=== PATIENT | male | born 1980 | race Caucasian/White ===

== ENCOUNTER 2024-11-28 11:30 | Emergency (ER) | payer OTHER ==
[2024-11-28 12:00] VITALS: TEMP 97.8
[2024-11-28 12:20] LABS: Absolute Neutrophil Ct (ANC) 2.59 x10^3/uL (1.78-5.38); BASOPHIL % 1.3 % (0.2-1.2); Basophil (Absolute #) 0.05 x10^3/uL (0.01-0.08); Eosinophil (Absolute #) 0 x10^3/uL (0.04-0.54); Hematocrit 27.5 % (40.1-51.0); Hemoglobin 9.6 g/dL (13.7-17.5); IMMATURE GRAN # 0.02 x10^3u/L (0.001-0.031); IMMATURE GRAN % 0.5 % (0.001-0.429); Lymphocyte (Absolute #) 0.61 x10^3/uL (1.32-3.57); Lymphocytes % 16.1 % (21.8-53.1); Mean Cell Volume 102.6 fL (79.0-92.2); Mean Corpuscular Hemoglobin 35.8 pg (25.7-32.2); Mean Corpuscular Hgb Concent. 34.9 g/dL (32.3-36.5); Mean Platelet Volume 9.4 fL (9.4-12.4); Monocyte (Absolute #) 0.52 x10^3/uL (0.30-0.82); Monocytes % 13.7 % (5.3-12.2); Neutrophil % 68.4 % (34.0-67.9); Platelet Count 61 x10^3/uL (163-337); Red Blood Count 2.68 x10^6/uL (4.63-6.08); Red Cell Distribution Width 13.4 % (11.6-14.4); White Blood Count 3.8 x10^3/uL (4.23-9.07)
[2024-11-28 12:33] LABS: ALBUMIN 3.5 g/dL (3.5-5.0); ANION GAP 16.9 MEQ/L (5-15); Calcium 7.9 mg/dL (8.4-10.2); Creatinine 1 0.64 mg/dL (0.66-1.25); Potassium 3.4 mmol/L (3.5-5.1); Total Protein 7.4 g/dL (6.3-8.2)
[2024-11-28 14:34] LABS: Slide Review 1 YES
--- NOTE | 2024-11-28 15:22 | XRAY ---
Indication: Ascites. Mode contiguous axial images obtained through the abdomen and pelvis using 80 cc Isovue 370 contrast as ordered. Comparison: None Lung bases clear. Heart not enlarged. Small hiatal hernia with small distal paraesophageal varices. Noncontrasted stomach and bowel loops appear nonobstructed. Cirrhotic appearing liver with moderate diffuse abdominal/pelvic ascites. No walled off fluid collection or free air. Main portal vein is normal in course and caliber. Mildly distended gallbladder with tiny gallstones/gravel in the dependent portion. There is borderline gallbladder wall thickening and enhancement, possible early/mild cholecystitis. Remaining liver, gallbladder, pancreas, spleen, adrenal glands, kidneys, ureters, bladder, and aorta are unremarkable. No pathologic retroperitoneal lymphadenopathy. Osseous structures intact with mild lumbosacral junction degenerative disc osteophyte complex, degenerative vacuum disc phenomena, and disc space narrowing. Impression: 1. Cirrhotic liver with abdominal/pelvic ascites as detailed. Incidental distal paraesophageal varices which may be related. 2. Mild distended gallbladder with tiny gallstones/gravel. Also borderline wall thickening/enhancement. Rule out early or mild cholecystitis. 3. Incidental small hiatal hernia and lumbosacral junction degenerative disc disease.
--- NOTE | 2024-11-28 15:51 | ERPHSYRPT ---
- History of Present Illness Source: patient, family Exam Limitations: no limitations Patient Subjective Stated Complaint: C/O swelling in abdomen in the past 6 weeks. States he has gained 40 pounds since this began. Denies pain. Triage Nursing Assessment: Patient ambulated back to ER without difficulties. He is alert and oriented; anxious. Patient's abdomen is distended. Abdominal girth measured at naval while patient standing, measures 53 inches. Skin is jaundice. Physician History: The patient's had about a 50 pound weight gain over the last 3 weeks. It is all in his abdomen it is ascites in appearance. He has a history of heavy drinking but he stopped that about 10 years ago he still continues to drink but is just 2-3 beers a day. He also has some jaundiced skin and sclera that are becoming apparent. I believe that the jaundice is been over the last few days. The progressive ascites is gone over the last 3 or 4 weeks. He says he has some generalized malaise but no other specific symptoms. He does not have any chest pain. His abdomen is tense but he is not having any abdominal pain. He has no neurological symptoms. He has no other toxic or systemic symptoms.Nothing makes symptoms better or worse. Allergies/Adverse Reactions: No Known Drug Allergies Allergy (Verified 11/28/24 11:42) Home Medications: Semaglutide [Ozempic] 0.5 mg SQ WEEKLY 10/23/24 [History] Escitalopram Oxalate [Lexapro] 10 mg PO DAILY 11/28/24 [History] Hx Tetanus, Diphtheria Vaccination/Date Given: Yes Immunizations Up to Date: Yes Travel Risk - International Travel Have you traveled outside of the country in past 3 weeks: No - Emerging Infectious Disease Are you exhibiting symptoms associated with any current EIDs: No - Review of Systems Constitutional: No Symptoms Eyes: No Symptoms Ears, Nose, & Throat: No Symptoms Respiratory: No Symptoms Cardiac: No Symptoms Musculoskeletal: No Symptoms Skin: No Symptoms Neurological: No Symptoms All Other Systems: Reviewed and Negative - Past Medical History Pertinent Past Medical History: Yes Cardiac History: High Cholesterol, Hypertension Endocrine Medical History: Diabetes Type II Psycho-Social History: Anxiety Other Medical History: "Fatty Liver" - Past Surgical History Past Surgical History: Yes Male Surgical History: Vasectomy Other Surgical History: carpal tunnel - Social History Smoking Status: Never smoker Drug Use: none - Social Determinants of Health Will the patient participate in the screening: Declined to provide - Nursing Vital Signs Nursing Vital Signs: Initial Vital Signs Temperature 97.8 F 11/28/24 11:30 Pulse Rate 106 H 11/28/24 11:30 Respiratory Rate 17 11/28/24 11:30 Blood Pressure 150/104 11/28/24 11:30 O2 Sat by Pulse Oximetry 92 L 11/28/24 11:30 Pain Scale Pain Intensity 0 - Physical Exam General Appearance: no apparent distress Eye Exam: PERRL/EOMI Ears, Nose, Throat Exam: normal ENT inspection Neck Exam: normal inspection Respiratory Exam: normal breath sounds Cardiovascular Exam: regular rate/rhythm Gastrointestinal/Abdomen Exam: other (Tense with ascites) Rectal Exam: deferred Back Exam: normal inspection Neurologic Exam: alert SpO2: 98 - Course Nursing assessment & vital signs reviewed: Yes Ordered Tests: Active Orders 24 hr Category Date Time Status ABDOMEN AND PELVIS W CONTRAST [CT] Stat Exams 11/28/24 11:56 Completed CBC W DIFF Stat Lab 11/28/24 12:15 Completed CMP Stat Lab 11/28/24 12:15 Completed Lactic Acid Stat Lab 11/28/24 12:14 Completed Lab/Rad Data: Laboratory Result Diagrams 11/28/24 12:15 11/28/24 12:15 Laboratory Results 11/28/24 11/28/24 11/28/24 Range/Units 12:15 12:15 12:15 WBC 3.8 L (4.23-9.07) x10^3/uL RBC 2.68 L (4.63-6.08) x10^6/uL Hgb 9.6 L (13.7-17.5) g/dL Hct 27.5 L (40.1-51.0) % MCV 102.6 H (79.0-92.2) fL MCH 35.8 H (25.7-32.2) pg MCHC 34.9 (32.3-36.5) g/dL RDW 13.4 (11.6-14.4) % Plt Count 61 L (163-337) x10^3/uL MPV 9.4 (9.4-12.4) fL Gran % 68.4 H (34.0-67.9) % Immature Gran % (Auto) 0.5 H (0.001-0.429) % Nucleat RBC Rel Count 0.0 (0.00-0.2) % Eos # (Auto) 0 L (0.04-0.54) x10^3/uL Immature Gran # (Auto) 0.02 (0.001-0.031) x10^3u/L Absolute Lymphs (auto) 0.61 L (1.32-3.57) x10^3/uL Absolute Monos (auto) 0.52 (0.30-0.82) x10^3/uL Absolute Nucleated RBC 0.00 (0.00-0.012) x10^3u/L Lymphocytes % 16.1 L (21.8-53.1) % Monocytes % 13.7 H (5.3-12.2) % Eosinophils % 0.0 L (0.8-7.0) % Basophils % 1.3 H (0.2-1.2) % Absolute Granulocytes 2.59 (1.78-5.38) x10^3/uL Basophils # 0.05 (0.01-0.08) x10^3/uL Sodium 136 (135-145) mmol/L Potassium 3.4 L (3.5-5.1) mmol/L Chloride 101 (98-107) mmol/L Carbon Dioxide 22 (22-30) mmol/L Anion Gap 16.9 H (5-15) MEQ/L BUN 3 L (9-20) mg/dL Creatinine 0.64 L (0.66-1.25) mg/dL Estimated GFR 119.0 ML/MIN Glucose 101 (74-106) mg/dL Lactic Acid (0.4-2.0) Calcium 7.9 L (8.4-10.2) mg/dL Total Bilirubin 5.00 H (0.2-1.3) mg/dL AST 187 H (17-59) U/L ALT 56 H (0-50) U/L Alkaline Phosphatase 77 (38-126) U/L Ammonia 24 (9-30) umol/L Serum Total Protein 7.4 (6.3-8.2) g/dL Albumin 3.5 (3.5-5.0) g/dL Slides for Path Review YES 11/28/24 Range/Units 12:14 WBC (4.23-9.07) x10^3/uL RBC (4.63-6.08) x10^6/uL Hgb (13.7-17.5) g/dL Hct (40.1-51.0) % MCV (79.0-92.2) fL MCH (25.7-32.2) pg MCHC (32.3-36.5) g/dL RDW (11.6-14.4) % Plt Count (163-337) x10^3/uL MPV (9.4-12.4) fL Gran % (34.0-67.9) % Immature Gran % (Auto) (0.001-0.429) % Nucleat RBC Rel Count (0.00-0.2) % Eos # (Auto) (0.04-0.54) x10^3/uL Immature Gran # (Auto) (0.001-0.031) x10^3u/L Absolute Lymphs (auto) (1.32-3.57) x10^3/uL Absolute Monos (auto) (0.30-0.82) x10^3/uL Absolute Nucleated RBC (0.00-0.012) x10^3u/L Lymphocytes % (21.8-53.1) % Monocytes % (5.3-12.2) % Eosinophils % (0.8-7.0) % Basophils % (0.2-1.2) % Absolute Granulocytes (1.78-5.38) x10^3/uL Basophils # (0.01-0.08) x10^3/uL Sodium (135-145) mmol/L Potassium (3.5-5.1) mmol/L Chloride (98-107) mmol/L Carbon Dioxide (22-30) mmol/L Anion Gap (5-15) MEQ/L BUN (9-20) mg/dL Creatinine (0.66-1.25) mg/dL Estimated GFR ML/MIN Glucose (74-106) mg/dL Lactic Acid 2.3 H (0.4-2.0) Calcium (8.4-10.2) mg/dL Total Bilirubin (0.2-1.3) mg/dL AST (17-59) U/L ALT (0-50) U/L Alkaline Phosphatase (38-126) U/L Ammonia (9-30) umol/L Serum Total Protein (6.3-8.2) g/dL Albumin (3.5-5.0) g/dL Slides for Path Review - Progress Progress: unchanged Progress Note: Patient was stable throughout stay. His chemistry panel showed an elevated bilirubin of around 5. His transaminases were slightly elevated. Rest of his chemistry looked decent. His CBC showed no significant abnormalities at this time. I got An abdominal CT. It showed ascites and some cirrhotic liver findings. The patient obviously has some liver failure going on. I spoke with his primary doctor and between him and the patient they will try to do this on an outpatient basis. I think that the most reasonable plan is going to be to get him scheduled for an outpatient paracentesis to get some of the swelling down and some relief from the discomfort.I am going to schedule him for outpatient. His physician's name Dr. Rizvi. He was notified and agreed and will begin outpatient therapy with him within the week. 11/28/24 15:48 - Departure Departure Disposition: Home Clinical Impression: Ascites of liver Condition: Stable Critical Care Time: No Referrals: XOCHITL RIZVI MD [Primary Care Provider, [facility]] - Follow up/PCP as directed Instructions: Fluid in the belly from cirrhosis (ascites) Additional Instructions: Get the paracentesis done as scheduled. That will be tomorrow November 29 at 1 PM Follow-up with your primary care doctor before the weeks end
[2024-11-28 16:20] VITALS: BP 161/90; PULSE 99; RESP 15; O2SAT 95
== END 2024-11-28 16:31 | disposition home or self-care (01) ==
LOC: ED 11:30
DX: R18.8 Other ascites (principal); E78.5 Hyperlipidemia, unspecified; I10 Essential (primary) hypertension; E11.9 Type 2 diabetes mellitus without complications; Z79.85 Long-term (current) use of injectable non-insulin antidiabetic drugs; Z79.899 Other long term (current) drug therapy
CPT/HCPCS: 36415; 74177; 80053; 82140; 83605; 85025; 99284; 99285